=== PATIENT | female | born 1990 | race Caucasian/White ===

== ENCOUNTER → 2022-11-11 09:03 | Outpatient (CLI) | payer MEDICAID, SELFPAY ==
--- NOTE | 2022-11-11 09:03 | US_ITS ---
FINAL REPORT TECHNIQUE: Sonographic images of the pelvis were obtained transvaginally. CLINICAL HISTORY: left-sided pelvic pain COMPARISON: none FINDINGS: The uterus is retroverted and retroflexed. It measures 5.6 x 3.3 x 4.1 cm. The endometrial stripe measures 4 mm. The myometrium and cervix are unremarkable. An IUD is noted within the endometrial cavity. The right ovary measures 2.8 x 2.0 x 1.8cm. It is normal in appearance. The left ovary measures 3.1 x 2.5 x 2.4 cm. It is normal in appearance. Color imaging to the ovaries is within normal limits. There is no free fluid. IMPRESSION: IUD within the endometrial cavity. Normal sonographic appearance to the uterus and ovaries for age. Reviewed, Interpreted and Dictated by Marcela Swift MD Transcribed by Viviana Kaur Authenticated and . [facility]
== END ==
PROVIDERS: PCP Nurse Practitioner; Visit Provider Obstetrics & Gynecology
DX: R10.2 Pelvic and perineal pain (principal)
CPT/HCPCS: 76830

== ENCOUNTER → 2022-11-13 15:10 | Outpatient (CLI) | payer MEDICAID, SELFPAY ==
[2022-11-13 16:00] LABS: Basophils # 0.1 K/mm3 (0-0.2); Basophils % 1.7 % (0.1-2.0); Eosinophils # 0.4 K/mm3 (0.0-0.4); Eosinophils % 6.3 % (0.1-12.0); Hematocrit 44.4 % (37.0-47.0); Hemoglobin 14.7 g/dL (12.2-16.2); Lymphocytes # 2.1 K/mm3 (0.7-4.5); Lymphocytes % 31.1 % (10-50); Mean Corpuscular HGB Conc 33.1 g/dL (31.8-35.4); Mean Corpuscular Hemoglobin 31.1 pg (27.0-31.2); Mean Corpuscular Volume 94.2 fl (81-99); Monocytes # 0.3 K/mm3 (0.1-1.0); Monocytes % 4.7 % (1.7-9.3); Neutrophils # 3.8 K/mm3 (1.8-7.8); Neutrophils % 56.2 % (37.0-80.0); Platelet Count 284 K/mm3 (142-424); Red Blood Count 4.72 M/mm3 (4.20-5.40); Red Cell Distribution Width 12.2 % (11.5-17.5); White Blood Count 6.8 K/mm3 (4.8-10.8)
[2022-11-13 16:29] LABS: C-Reactive Protein 2.5 mg/L (0-4)
[2022-11-18 18:10] LABS: Aspergillus flavus Negative (Neg:<1:1); Aspergillus fumigatus Negative (Neg:<1:1); Aspergillus niger Negative (Neg:<1:1); Blastomyces Antibody Negative (Neg:<1:1)
[2022-11-20 07:44] LABS: D001-IgE D pteronyssinus 0.17 kU/L (Class 0/I); D002-IgE D farinae 0.12 kU/L (Class 0/I); E001-IgE Cat Dander >100 kU/L (Class VI); E072-IgE Mouse Urine 1.26 kU/L (Class II); G002-IgE Bermuda Grass 9.07 kU/L (Class IV); I006-IgE Cockroach, German 0.25 kU/L (Class 0/I); Immunoglobulin E, Total 402 IU/mL (6-495); M001-IgE Penicillium chrysogen <0.10 kU/L (Class 0); M002-IgE Cladosporium herbarum <0.10 kU/L (Class 0); M003-IgE Aspergillus fumigatus <0.10 kU/L (Class 0); M006-IgE Alternaria alternata <0.10 kU/L (Class 0); T001-IgE Maple/Box Elder 0.43 kU/L (Class I); T006-IgE Cedar, Mountain 0.38 kU/L (Class I); T007-IgE Oak, White 0.51 kU/L (Class I); T008-IgE Elm, American 0.54 kU/L (Class I); T010-IgE Walnut 0.58 kU/L (Class II); T011-IgE Maple Leaf Sycamore 0.55 kU/L (Class I); T014-IgE Cottonwood 0.49 kU/L (Class I); T015-IgE Ash, White 0.58 kU/L (Class II); T022-IgE Pecan, Hickory 0.44 kU/L (Class I); T070-IgE White Mulberry 0.37 kU/L (Class I); W001-IgE Ragweed, Short 0.58 kU/L (Class II); W011-IgE Thistle, Russian 0.62 kU/L (Class II); W014-IgE Pigweed, Common 0.46 kU/L (Class I); W018-IgE Sheep Sorrel 0.72 kU/L (Class II)
== END ==
PROVIDERS: PCP Nurse Practitioner; Visit Provider Internal Medicine Pulmonary Disease
DX: R06.09 Other forms of dyspnea (principal); J84.10 Pulmonary fibrosis, unspecified; J30.9 Allergic rhinitis, unspecified; J45.909 Unspecified asthma, uncomplicated
CPT/HCPCS: 36415; 82785; 85025; 86003; 86140; 86606; 86612

== ENCOUNTER → 2022-12-19 07:42 | Outpatient (CLI) | payer MEDICAID, SELFPAY ==
--- NOTE | 2022-12-19 09:08 | XR_ITS ---
FINAL REPORT TECHNIQUE: Chest PA & Lateral CLINICAL HISTORY: SOB FINDINGS: 2 views of the chest were performed. The heart size is normal. The mediastinum is within normal limits. There is no acute cardiopulmonary process. There are no pleural effusions. There is no pneumothorax. The bony thorax appears intact. IMPRESSION: No acute cardiopulmonary process. Reviewed, Interpreted and Dictated by Cristopher Brown MD Transcribed by Coni Guidry Authenticated and [facility]
== END ==
PROVIDERS: PCP Nurse Practitioner; Visit Provider Internal Medicine Pulmonary Disease
DX: R06.09 Other forms of dyspnea (principal); R06.02 Shortness of breath
CPT/HCPCS: 71046; 94060; 94618; 94726; 94729

== ENCOUNTER → 2023-01-07 14:05 | Outpatient (CLI) | payer MEDICAID, SELFPAY ==
[2023-01-07 14:41] LABS: Basophils # 0.1 K/mm3 (0-0.2); Basophils % 0.7 % (0.1-2.0); Eosinophils # 0.1 K/mm3 (0.0-0.4); Eosinophils % 1.5 % (0.1-12.0); Hematocrit 45.1 % (37.0-47.0); Hemoglobin 15.1 g/dL (12.2-16.2); Lymphocytes # 2.4 K/mm3 (0.7-4.5); Lymphocytes % 29.1 % (10-50); Mean Corpuscular HGB Conc 33.6 g/dL (31.8-35.4); Mean Corpuscular Hemoglobin 31.1 pg (27.0-31.2); Mean Corpuscular Volume 92.6 fl (81-99); Mean Platelet Volume 7.6 fl (7.4-10.4); Monocytes # 0.4 K/mm3 (0.1-1.0); Monocytes % 4.3 % (1.7-9.3); Neutrophils # 5.3 K/mm3 (1.8-7.8); Neutrophils % 64.3 % (37.0-80.0); Platelet Count 295 K/mm3 (142-424); Red Blood Count 4.87 M/mm3 (4.20-5.40); Red Cell Distribution Width 12.7 % (11.5-17.5); White Blood Count 8.3 K/mm3 (4.8-10.8)
[2023-01-07 16:02] LABS: Alanine Aminotransferase 26 U/L (12-78); Albumin Level 4.9 g/dl (3.5-5.0); Albumin/Globulin Ratio 1.9 (1.1-1.8); Alkaline Phosphatase 142 U/L (38-126); Anion Gap 13.8 mEq/L (5-15); Aspartate Amino Transferase 24 U/L (14-36); Bilirubin,Total 0.4 mg/dl (0.2-1.3); Blood Urea Nitrogen 5 mg/dl (7-17); Calcium 9.3 mg/dl (8.4-10.2); Carbon Dioxide 28 mmol/L (22.0-30.0); Chloride 104 mmol/L (98-107); Estimated Glomerular Filt Rate 144 ml/min (>60); GFR (African American) 174 ML/MIN (>60); Globulin 2.6 g/dL (1.3-3.2); Glucose 84 mg/dl (74-100); Potassium 3.8 mmoL/L (3.5-5.1); Sodium 142 mmol/L (136-145); Total Protein,Serum 7.5 g/dl (6.3-8.2)
[2023-01-07 16:18] LABS: HCG,Quantitative < 2 mIU/ml (0-5.42)
== END ==
PROVIDERS: PCP Nurse Practitioner; Visit Provider Obstetrics & Gynecology
DX: R10.2 Pelvic and perineal pain (principal)
CPT/HCPCS: 36415; 80053; 84702; 85025

== ENCOUNTER 2023-01-14 07:10 | Observation (INO) | payer MEDICAID, SELFPAY ==
[2023-01-13 10:42] VITALS: BMI 28.8
[2023-01-14] VITALS (22 sets, daily range): BP systolic 100–147; BP diastolic 54–83; PULSE 74–111; RESP 10–20; TEMP 36.1–43; O2SAT 93–100
[2023-01-14 06:37] LABS: Urine Pregnancy, HCG Qual. Negative (Negative)
--- NOTE | 2023-01-14 07:02 | P.PN_ITS ---
[facility] Disclaimer: The information contained in this section may have been updated after the patient was seen, as this information can be updated by other users. Medical History Abdominal pain Allergies Asthma Colon polyps Depression Dyspnea on exertion Endometriosis Family history of asthma Gestational diabetes History of 2019 novel coronavirus disease (COVID-19) History of anemia History of ovarian cyst Irritable bowel syndrome (IBS) Pelvic pain Primary stress urinary incontinence Surgical History History of endometrial ablation Hx of colonoscopy Hx of knee surgery Hx of laparoscopy [place] teeth removed Family History Other Cancer Diabetes Family history of asthma Family history of hypothyroidism Hypertension Mental health disorder Social History Smoking Status: Current every day smoker tobacco type: cigarettes packs per day: 1 years smoked: 14 alcohol intake: current substance use type: denies use current occupational status: unemployed Travel in the last 8 weeks: None caffeine: Yes [facility] Anesthesia Checklist Patient Identification Patient Identification: Arm Band and Verbal (Name & ) Structural Data Admitted From: Home Planned Operative Procedure/s: [facility] Consent for Planned Operative Procedure(s) Verified: Yes NPO Status Verified Time NPO: 00:00 Chart Verification Results Verified: HCG Airway Assessment C-Spine Mobility Assessed: Yes TMJ Mobility Assessed: Yes Dentition: Good Dentition Neurological Assessment Level of Consciousness: Awake Hx Seizures: No Numbness or tingling in extremities: No Anesthesia Plan Anesthesia Risk discussed: Yes Anesthesia Plan: Verified ASA Class: II Anesthesia Type: General
[2023-01-14 07:08] LABS: Coronavirus 19, PCR Not Detected (NotDetected); Influenza A, PCR Not Detected (NotDetected); Influenza B, PCR Not Detected (NotDetected)
--- NOTE | 2023-01-14 07:10 | SUR.PREOP ---
Confirmed preop medications as order by Dr Mortensen with Kenneth Medellin CRNA. Medications ok'd to be given PO prior to procedure per anesthesia provider. Medications given PO with a minimal but sufficient amount of water.
--- NOTE | 2023-01-14 07:12 | EXP.HP ---
History of Present Illness *Admission Date: 01/14/23 *Reason for visit:: Scheduled procedure *History of present illness: Mrs Luna Pearl is a 32 yo P1011 who presents to [facility] for scheduled procedure. She complains of abdominal pain/pressure and left side/low back pain. She reports history of endometriosis with history of laparoscopy and laser of endometriosis. She admits she was on Depo Provera for years secondary to irregular periods and pain. However, Depo provera led to weight gain and she switched to Mirena IUD in 2019. She reports irregular spotting throughout the month but once a month she has increased abdominal, left pelvic pain and side/low back pain like she would be having her period. She also reports history of ovarian cysts. She states all the women her family have had hysterectomies prior to age 40 for endometriosis. History of x 1 in 2016. She states and labor and delivery was a horrible experience. She is complete with childbearing. She has been diagnosed with IBS. She admits to stress urinary incontinence since delivery of her son. She states she has always had some difficulty with urinary frequency, even before . Denies urinary incontinence. Pelvic ultrasound 11/11/22 was within normal limits. IUD in proper position. She requests definitive surgical intervention with hysterectomy, BSO. [facility] Disclaimer: The information contained in this section may have been updated after the patient was seen, as this information can be updated by other users. Medical History Abdominal pain Allergies Asthma Colon polyps Depression Dyspnea on exertion Endometriosis Family history of asthma Gestational diabetes History of 2019 novel coronavirus disease (COVID-19) History of anemia History of ovarian cyst Irritable bowel syndrome (IBS) Pelvic pain Primary stress urinary incontinence Surgical History History of endometrial ablation Hx of colonoscopy Hx of knee surgery Hx of laparoscopy [place] teeth removed Family History Other Cancer Diabetes Family history of asthma Family history of hypothyroidism Hypertension Mental health disorder Social History Smoking Status: Current every day smoker tobacco type: cigarettes packs per day: 1 years smoked: 14 alcohol intake: current substance use type: denies use current occupational status: unemployed Travel in the last 8 weeks: None caffeine: Yes Review of Systems Review of Systems Review of systems:: pertinent systems reviewed and negative unless documented below *Gastrointestinal Gastrointestinal: Reports abdominal pain *Genitourinary Genitourinary: Reports pelvic pain Meds Home Medications and Allergies Home Medications Medication Instructions Recorded Confirmed Type albuterol sulfate 90 mcg/actuation See Rx Instructions .Route 10/20/22 01/14/23 History aerosol inhaler (Ventolin HFA) .COMPLEX PRN Allergic Symptoms fluticasone propionate 50 See Rx Instructions .Route 10/20/22 01/14/23 History mcg/actuation nasal .COMPLEX Allergy symptoms spray,suspension levonorgestrel 21 mcg/24 hours (8 See Protocol intrauterine 10/20/22 01/14/23 History yrs) 52 mg intrauterine device DIRECTED control (Mirena) loratadine-pseudoephedrine ER 10 1 tab PO DAILY Allergy symptoms 10/20/22 01/14/23 History mg-240 mg tablet,extended [id number] (Loratadine-D) quetiapine 25 mg tablet (Seroquel) 25 mg PO DAILY Insomnia 11/13/22 01/14/23 History zkfomxl-tcclptzgbghfg-uenrxfen 250 2 tab PO Q4-6H PRN Migraine 01/07/23 01/14/23 History mg-250 mg-65 mg tablet (Excedrin Headache Migraine) cetirizine 10 mg tablet (Zyrtec) 10 mg PO DAILY Allergy symptoms 01/07/23 01/14/23 History fluoxetine 20 mg capsule 20 mg
--- NOTE | 2023-01-14 09:51 | EXP.ANES.I ---
[facility] Anesthesia Record Part I Anesthesia Record I Intake, IV Amount: 1,200 Estimated blood loss (mL): 30 Urine output (mL): 0 Blood Pressure: 113/73 SaO2: 93 Pulse Rate: 85 Respiratory Rate: 10 Temperature: 97 F Patient is:: Drowsy and Oral/Nasal airway Stable to PACU at:: 09:50
--- NOTE | 2023-01-14 10:36 | EXP.OP.NOTE ---
Date of procedure: 01/14/23 Pre-op Diagnosis:: 1. Abdominal pain 2. Pelvic pain 3. History of ovarian cysts 4. Endometriosis 5. Anxiety 6. Depression 7. Asthma Post-op Diagnosis:: 1. Abdominal pain 2. Pelvic pain 3. History of ovarian cysts 4. Endometriosis 5. Anxiety 6. Depression 7. Asthma Procedure performed:: Total Laparoscopic Hysterectomy, Bilateral salpingo oophorectomy Surgeon:: Joyce Mortensen DO Skills Instructor(s):: Ozzy Schumacher MD SW[employer] TEAM MEMBER:: Kwan Mendez Anesthesia: GETA Estimated blood loss (mL): 50 Clinical Note:: Mrs Luna Pearl is a 32 yo P1011 who presents to [facility] for scheduled procedure. She complains of abdominal pain/pressure and left side/low back pain. She reports history of endometriosis with history of laparoscopy and laser of endometriosis. She admits she was on Depo Provera for years secondary to irregular periods and pain. However, Depo provera led to weight gain and she switched to Mirena IUD in 2019. She reports irregular spotting throughout the month but once a month she has increased abdominal, left pelvic pain and side/low back pain like she would be having her period. She also reports history of ovarian cysts. She states all the women her family have had hysterectomies prior to age 40 for endometriosis. History of x 1 in 2016. She states and labor and delivery was a horrible experience. She is complete with childbearing. She has been diagnosed with IBS. She admits to stress urinary incontinence since delivery of her son. She states she has always had some difficulty with urinary frequency, even before . Denies urinary incontinence. Pelvic ultrasound 11/11/22 was within normal limits. IUD in proper position. She requests definitive surgical intervention with hysterectomy, BSO. Operative findings:: 1. On bimanual exam, uterus midposition, normal size and shape, slightly retroverted. No adnexal masses palpated 2. On laparoscopic exam, grossly normal appearing liver, omentum and bowel. Uterus, bilateral fallopian tubes and bilateral ovaries grossly normal. Powder burn endometriosis lesions noted along left ureter and in posterior cul-de-sac Operative note:: Discussed risks, benefits, alternatives, expectations and possible complications of surgery. All questions addressed and answered. Patient wished to proceed with surgery. Patient was wheeled back to the operating room and placed under general anesthesia without difficulty. She was placed in the dorsal lithotomy position. She was prepped and draped in normal sterile fashion. Beginning at the vagina, a michelle catheter was inserted into the bladder and draining clear urine prior to the start of the procedure. Weighted Auvuard was placed in the vaginal vault. Anterior lip of the cervix was grasped with single tooth tenaculum. Uterus sounded to 8. Jaycob dilators were used to dilate the cervix. Advincula uterine manipulator was inserted into the cervix with the colpotomy cup covering the cervix. Single tooth tenaculum was removed prior to complete placement of colpotomy cup over cervix. Uterine balloon was filled with 10cc of air. Vaginal balloon was filled with 60 cc of air. Weighted Auvard was removed. Attention was then turned to the abdomen. Skin just below the umbilicus was injected with 0.5% marcaine. A 2cm infraumbilical incision was made. Veress needle was tested and inserted intrabdominally. Opening pressure was 7 mm Hg. The peritoneal cavity was insulflated to 15 mm Hg. Laparoscope within 11 mm blunt trocar was inserted intrabdominally under direct visualization. Obturator and scope were removed. Laparoscope was inserted into the trocar sleeve. Abdomen and pelvis was viewed in its entirety. Examination of the peritoneal cavity revealed no signs of injury from entry and normal anatomic structures. See findings above. Pictures were taken. Bowel was swept cephalad with blunt probe. LLQ port site was transilluminated and injected with 0.5% marcaine. A 2 cm
--- NOTE | 2023-01-14 16:30 | PC.NURSE ---
REASSESSMENT DONE AT THIS TIME. LUNGS CTA AND BOWEL SOUNDS HYPOACTIVE. PATIENT HAS BEEN VOIDING WELL TODAY. AMBULATING WITHOUT ASSISTANCE. IV INFUSING. A/O X4. NO EDEMA. PULSES 2+. 3 LAP SITES WITH DERMABOND. BRUSING NOTED. SCANT VAGINAL BLEEDING NOTED/.
[2023-01-15 02:54] VITALS: RESP 17
[2023-01-15 04:00] VITALS: BP 109/54; PULSE 74; RESP 17; TEMP 37.1; O2SAT 96
[2023-01-15 04:29] VITALS: RESP 17
--- NOTE | 2023-01-15 04:52 | PC.NURSE ---
Nursing reassessment done at this time. Pt has slept well throughout the night and intermittently c/o pain and requests to have oxycodone. Pt reports that this helps her the most with her pain. Pt reports that the gas pain has gotten some better but c/o gas still in shoulder, pillow and abdominal binder provided for relief. Surgical site remains unchanged during this shift. All sites are cdi, with bruising noted to all incisions sites. Lungs clear throughout and pt educated this shift on Incentive.Bowel sounds normative in all quadrants and pts reports no bm but is passing gas. Iv saline locked at this time. Pt ambulatory to the bathroom independently throughout the night. VSS throughout shift. Cb remains in reach.
[2023-01-15 06:50] LABS: Chloride 99 mmol/L (98-107); Sodium 138 mmol/L (136-145)
[2023-01-15 06:51] LABS: Potassium 3.7 mmoL/L (3.5-5.1)
[2023-01-15 06:53] LABS: Anion Gap 14.7 mEq/L (5-15); Blood Urea Nitrogen 9 mg/dl (7-17); Carbon Dioxide 28 mmol/L (22.0-30.0); Creatinine Clearance Estimated 196 mL/min (50-200); Estimated Glomerular Filt Rate 144 ml/min (>60); GFR (African American) 174 ML/MIN (>60)
[2023-01-15 06:54] LABS: Calcium 8.5 mg/dl (8.4-10.2); Glucose 100 mg/dl (74-100)
[2023-01-15 07:02] LABS: Basophils % 0.4 % (0.1-2.0); Eosinophils # 0.2 K/mm3 (0.0-0.4); Eosinophils % 2.4 % (0.1-12.0); Hematocrit 32.8 % (37.0-47.0); Hemoglobin 10.7 g/dL (12.2-16.2); Lymphocytes # 2.5 K/mm3 (0.7-4.5); Lymphocytes % 30.5 % (10-50); Mean Corpuscular HGB Conc 32.6 g/dL (31.8-35.4); Mean Corpuscular Hemoglobin 30.4 pg (27.0-31.2); Mean Corpuscular Volume 93.3 fl (81-99); Monocytes # 0.5 K/mm3 (0.1-1.0); Monocytes % 5.7 % (1.7-9.3); Platelet Count 207 K/mm3 (142-424); Red Blood Count 3.52 M/mm3 (4.20-5.40); Red Cell Distribution Width 12.6 % (11.5-17.5); White Blood Count 8.2 K/mm3 (4.8-10.8)
[2023-01-15 07:30] VITALS: O2SAT 97
[2023-01-15 07:47] VITALS: BP 101/45; PULSE 74; RESP 18; TEMP 36.7; O2SAT 97
--- NOTE | 2023-01-15 07:48 | P.PNANES_ITS ---
[facility] Anesthesia Record Part II Anesthesia Record Part II Discharge Time: 10:20 Destination: Surgical Day Care (OP Surgery) PACU nurse assessment reviewed?: Yes Patient Condition:: Good Anesthesia Complications:: None Swallowing reflex intact?: Yes Cyanosis?: No Blood Pressure: 117/74 Pulse Rate: 76 Temperature: 98.2 F Mental Status: Alert & Oriented Pain level:: 0 Nausea and/or vomitting:: None Intake, IV Amount: 0
[2023-01-15 07:49] VITALS: BP 117/74; PULSE 76; TEMP 36.8
--- NOTE | 2023-01-15 09:49 | EXP.DC.SUM ---
General Admission date:: 01/14/23 Discharge date: 01/15/23 HPI HPI HPI: POD # 1 s/p TLH, BSO Resting comfortably in bed. Pain controlled with medication. Light spotting with wiping. Voiding without difficulty and passing flatus. Tolerating regular diet. No nausea or vomiting. Ambulating well ad juaquin. Denies fever/chills, chest pain and shortness of breath. No headaches, dizziness or lower extremity swelling. Hospital Course Hospital Course Hospital Course: Mrs Luna Pearl is a 32 yo P1011 who presents to [facility] for scheduled procedure. She complains of abdominal pain/pressure and left side/low back pain. She reports history of endometriosis with history of laparoscopy and laser of endometriosis. She admits she was on Depo Provera for years secondary to irregular periods and pain. However, Depo provera led to weight gain and she switched to Mirena IUD in 2019. She reports irregular spotting throughout the month but once a month she has increased abdominal, left pelvic pain and side/low back pain like she would be having her period. She also reports history of ovarian cysts. She states all the women her family have had hysterectomies prior to age 40 for endometriosis. History of x 1 in 2016. She states and labor and delivery was a horrible experience. She is complete with childbearing. She has been diagnosed with IBS. She admits to stress urinary incontinence since delivery of her son. She states she has always had some difficulty with urinary frequency, even before . Denies urinary incontinence. Pelvic ultrasound 11/11/22 was within normal limits. IUD in proper position. She requests definitive surgical intervention with hysterectomy, BSO. She underwent H BSO on 01/14/23. She received Delestrogen 30 mg IM. She did well postoperatively. Pain controlled with PO medication. She was voiding without difficulty and passing flatus. Tolerating regular diet and ambulating well ad juaquin. No fever/chills, chest pain or shortness of breath. Vital signs stable, afebrile. Heart regular rate and rhythm. Lungs clear to auscultation. Abdomen soft, nontender. + BS in all 4 quadrants. Incisions clean/dry/intact. Normal hospital course. She was discharged home on POD # 1. Exam Data for Last 24 hours Vital signs and Labs for Last 24 Hours: Temp Pulse Resp BP Pulse Ox 98.2 F 76 18 117/74 97 01/15/23 07:49 01/15/23 07:49 01/15/23 07:47 01/15/23 07:49 01/15/23 07:47 Laboratory Results - last 24 hr 01/15/23 06:34: WBC 8.2, RBC 3.52 L, Hgb 10.7 L, Hct 32.8 L, MCV 93.3, MCH 30.4, MCHC 32.6, RDW 12.6, Plt Count 207, MPV 7.0 L, Neut % (Auto) 61.0, Lymph % (Auto) 30.5, [place] % (Auto) 5.7, Eos % (Auto) 2.4, Baso % (Auto) 0.4, Neut # (Auto) 5.0, Lymph # (Auto) 2.5, [place] # (Auto) 0.5, Eos # (Auto) 0.2, Baso # (Auto) 0.0 01/15/23 06:34: Sodium 138, Potassium 3.7, Chloride 99, Carbon Dioxide 28, Anion Gap 14.7, BUN 9, Creatinine 0.50 L, Estimated Creat Clear 196, Estimated GFR 144, Est GFR ( Amer) 174, Glucose 100, Calcium 8.5 I & O for Last 24 hours: Intake & Output 01/12/23 01/13/23 01/14/23 01/15/23 23:59 23:59 23:59 23:59 Intake Total 1200 / 1200 0 / 0 Output Total 1150 / 1150 250 / 250 Balance 50 / 50 -250 / -250 Weight 168 lb Constitutional Constitutional: no acute distress and cooperative *Routine HEENT Exam Head: Present normocephalic and atraumatic Eye: Absent conjunctivae pink ENT: Present mucous membranes moist *Routine Neck Exam Neck: Present full ROM *Routine Respiratory Exam Respiratory: Present CTA bilaterally and normal respiratory effort *Routine Cardiovascular Exam Cardiovascular: Present RRR *Routine Abdominal Exam Abdominal: Present soft and normoactive bowel sounds; Absent tenderness or distended Comments: laparoscopic incisions clean/dry/intact *Routine Rectal Exam Patient deferred: visual exam *Routine Exam Patient deferred: external exam *Routine Extremities Exam Extrem
--- NOTE | 2023-01-15 11:46 | PC.NURSE ---
Patient is unable to walk from her bedroom to bathroom r/t distance, recent abdominal surgery, and urinary frequency. Therefore patient will need bedside commode to accommodate her during this recovery period.
== END 2023-01-15 13:05 | disposition home or self-care (01) ==
LOC: 2ND 07:11 → OB 09:13
PROVIDERS: Admitting Provider Obstetrics & Gynecology; PCP Nurse Practitioner; Visit Provider Obstetrics & Gynecology
PROC: (CPT 58150; principal; 2023-01-14 07:30)
DX: N80.9 Endometriosis, unspecified (principal); J45.909 Unspecified asthma, uncomplicated; N39.3 Stress incontinence (female) (male); F41.9 Anxiety disorder, unspecified; R10.2 Pelvic and perineal pain; R10.9 Unspecified abdominal pain
CPT/HCPCS: 58150; 36415; 80048; 81025; 85025; 88307; 96374; C9803; G0378; J2405; U0003; U0005

== ENCOUNTER 2023-12-27 13:24 | Emergency (ER) | payer SELFPAY ==
[2023-12-27 13:26] VITALS: BP 135/101; PULSE 95; RESP 18; TEMP 36.8; O2SAT 99; BMI 29.2
[2023-12-27 13:30] VITALS: BP 135/101; PULSE 95; O2SAT 99
--- NOTE | 2023-12-27 13:40 | CT_ITS ---
PROCEDURE INFORMATION: Exam: CT Head Without Contrast Exam date and time: 12/27/2023 2:34 PM Age: 33 years old Clinical indication: Pain; Headache; Additional info: MCCONNELL x 3 weeks TECHNIQUE: Imaging protocol: Computed tomography of the head without contrast. Radiation optimization: All CT scans at this facility use at least one of these dose optimization techniques: automated exposure control; mA and/or kV adjustment per patient size (includes targeted exams where dose is matched to clinical indication); or iterative reconstruction. COMPARISON: No relevant prior studies available. FINDINGS: Brain: Normal. No hemorrhage. Unremarkable white matter. No mass effect. Cerebral ventricles: No ventriculomegaly. Paranasal sinuses: There is a 2.3 cm right maxillary sinus mucous retention cyst. Mild mucosal thickening of the left maxillary sinus. The remainder of the paranasal sinuses are clear. No fluid levels. Mastoid air cells: Visualized mastoid air cells are well aerated. Bones/joints: Unremarkable. No acute fracture. Soft tissues: Unremarkable. IMPRESSION: No acute intracranial abnormality. There is a 2.3 cm right maxillary sinus mucous retention cyst. Mild mucosal thickening of the left maxillary sinus. The remainder of the paranasal sinuses are clear
--- NOTE | 2023-12-27 13:43 | ED_ITS ---
Discharge Plan Disposition Patient Disposition: Home, Self-Care Prescriptions Prescriptions: No Action quetiapine [Seroquel] 25 mg tablet 25 mg PO HS prazosin 1 mg capsule 1 mg PO HS fluoxetine 20 mg capsule 20 mg PO DAILY Patient Comments: TAKE 1 CAPSULE 1 TIME EACH DAY hydroxyzine pamoate 25 mg capsule 25 mg PO TID PRN (Reason: Anxiety) Excedrin Migraine 250-250-65 mg tablet 2 tab PO Q4-6H PRN (Reason: Migraine Headache) fluticasone propionate 50 mcg/actuation spray,suspension 1 spray intranasal DAILY Patient Comments: SPRAY 1 TIME IN EACH NOSTRIL 1 TIME EACH DAY albuterol sulfate [Ventolin HFA] 90 mcg/actuation HFA aerosol inhaler 2 puff inhalation Q4HP PRN (Reason: Shortness Of Breath) Patient Comments: INHALE 2 PUFFS EVERY 4 HOURS NEEDED montelukast [Singulair] 10 mg tablet 10 mg PO HS levocetirizine [Xyzal] 5 mg tablet 5 mg PO DAILY estradiol valerate 20 mg/mL oil 20 mg IM Q4W Qty: 5 3RF Rx Instructions: Patient needs an appt. by February for yearly check up budesonide-formoterol [Symbicort] 160-4.5 mcg/actuation HFA aerosol inhaler 2 puff inhalation BID lamotrigine 25 mg tablet 50 mg PO DAILY Patient Comments: TAKE 1 TABLET 1 TIME EACH DAY FOR 14 DAYS. THEN, TAKE 2 TABLETS 1 TIME EACH DAY. Rx Instructions: WILL SWITCH TO 100 MG DOSE ON OR ABOUT 01/19/23. Referrals Follow up/Referrals: Karina Soto APRN [Primary Care Provider] - See instructions Activity Restrictions/Add. Instructions Additional Instructions/Restrictions: At this time it was felt you are safe to be discharged home. If new or worsening symptoms please do not hesitate to return the emergency department. If symptoms persist please follow-up with your family doctor as you are able. Clinical Impressions Clinical Impression: Headache Discharge ED Provider: Minerva Espana General Adult HPI <Minerva Espana MD - Last Filed: 12/27/23 14:55> General Chief complaint: Headache Stated complaint: headache, shoulder neck pain and dizzy Time Seen by Provider: 12/27/23 13:34 History of Present Illness HPI narrative: Patient is a 33-year-old female presenting today with a headache. This has been ongoing and slightly worsening over the last several weeks. She has been undergoing a significant amount of stress and anxiety as her mother is moving up from [place] to [place] and is caught significant family issues and arguments. She does have a history of headaches and states that she had many headaches in the past but has never had to come to the emergency department for them as she is usually been able to get on top of them at home. She also has a family member who recently from a brain cancer and specifically she is worried about being next. She has no neurologic complaints but states when she changes movement or position quickly that her vision is blurred but is essentially at baseline of that. Denies any numbness tingling weakness in her arms or legs etc. No changes in coordination. Related Data Home Medications Medication Instructions Recorded Confirmed albuterol sulfate 90 mcg/actuation 2 puff inhalation Q4HP PRN 10/20/22 04/09/23 aerosol inhaler (Ventolin HFA) Shortness Of Breath fluticasone propionate 50 1 spray intranasal DAILY Allergy 10/20/22 04/09/23 mcg/actuation nasal symptoms spray,suspension quetiapine 25 mg tablet (Seroquel) 25 mg PO HS Insomnia 11/13/22 04/09/23 crkqccm-ugljjzitywenp-xmwdkksf 250 2 tab PO Q4-6H PRN Migraine 01/07/23 04/09/23 mg-250 mg-65 mg tablet (Excedrin Headache Migraine) fluoxetine 20 mg capsule 20 mg PO DAILY Anxiety 01/07/23 04/09/23 hydroxyzine pamoate 25 mg capsule 25 mg PO TID PRN Anxiety 01/07/23 04/09/23 prazosin 1 mg capsule 1 mg PO HS PTSD 01/07/23 04/09/23 budesonide-formoterol HFA 160 2 puff inhalation BID Allergy 01/13/23 04/09/23 mcg-4.5 mcg/actuation aerosol symptoms inhaler (Symbicort) lamotrigine 25 mg tablet 50 mg PO DAILY PTSD 01/14/23 04/09/23 levocetirizine 5 mg tablet (Xyzal) 5 mg PO DAILY 03/12/23 04/09/23 montelukast 10 mg tablet 10 mg PO HS 03/12/23 04/09/23 (Singulair) Previous Rx's Medication Instructions Recorded estradiol valerate 20 mg/mL 20 mg IM Q4W #5 mL 11/04/23 intramuscular oil Allergies Allergy/AdvReac Type Severity Reaction Status Date / Time No Known Allergies Allergy Verified 04/09/23 10:05 [facility] <Minerva Espana MD - Last Filed: 12/27/23 14:55> [facility] Disclaimer: The information contained in this section may have been updated after the patient was seen, as this information can be updated by other users. Medical History Abdominal pain Allergies Asthma Colon polyps Depression Dyspnea on exertion Endometriosis Endometriosis Family history of asthma Gestational diabetes History of 2019 novel coronavirus disease (COVID-19) History of anemia History of ovarian cyst Irritable bowel syndrome (IBS) Pelvic pain Primary stress urinary incontinence Urinary frequency Surgical History H/O total hysterectomy Laparoscopic History of endometrial ablation Hx of colonoscopy Hx of knee surgery Hx of laparoscopy S/P laparoscopic hysterectomy bilateral salpingo oophorectomy [place] teeth removed Family History Other Cancer Diabetes Family history of asthma Family history of hypothyroidism Hypertension Mental health disorder Social History Smoking Status: Never smoker years smoked: 14 alcohol intake: current substance use type: denies use current occupational status: unemployed Travel in the last 8 weeks: None caffeine: Yes <Minerva Espana MD - Last Filed: 12/27/23 14:55> ROS Obtained: Yes All systems reviewed & no additional complaints except as documented Physical Exam <Minerva Espana MD - Last Filed: 12/27/23 14:55> General General appearance: alert and in no apparent distress Respiratory Respiratory exam: Present normal lung sounds bilaterally; Absent respiratory distress Cardiovascular Cardiovascular exam: Present regular rate and normal rhythm Abdominal Exam Abdominal exam: Present soft; Absent distention or tenderness Neurological Exam Neurological exam: Present alert, oriented X3, CN II-XII intact and normal gait; Absent motor sensory deficit Medical Decision Making <Minerva Espana MD - Last Filed: 12/27/23 14:55> Luis Inquiry Pt receiving controlled substance: No Vital Signs: 12/27/23 13:26 12/27/23 13:30 12/27/23 14:06 Temperature 98.3 F Temperature Source Oral Pulse Rate 95 H 67 Pulse Rate [Right] 95 H Respiratory Rate 18 Blood Pressure 135/101 H 119/78 Blood Pressure [Right Arm] 135/101 H Blood Pressure Mean [Right Arm] 112 02 Sat by Pulse Oximetry 99 99 97 Oxygen Delivery Method Room Air Room Air Room Air 12/27/23 14:41 Temperature Temperature Source Pulse Rate 58 L Pulse Rate [Right] Respiratory Rate Blood Pressure 127/65 Blood Pressure [Right Arm] Blood Pressure Mean [Right Arm] 02 Sat by Pulse Oximetry 94 L Oxygen Delivery Method Room Air Orders (Tests/Meds): ED MEDICATIONS Discontinued Medications Generic Name Dose Route Start Last Admin Trade Name Freq PRN Reason Stop Dose Admin Dexamethasone Sodium Phosphate 10 mg 12/27/23 13:40 12/27/23 13:56 Dexamethasone 4mg/Ml 1ml Vial IV 12/27/23 13:41 10 mg ONCE ONE Administration Diphenhydramine HCl 25 mg 12/27/23 13:40 12/27/23 13:56 Diphenhydramine 50mg/Ml Vial IV 12/27/23 13:41 25 mg ONCE ONE Administration Lactated Ringer's 1,000 mls @ 999 mls/hr 12/27/23 13:45 12/27/23 13:57 Lactated Ringer's 1000 Ml Bag IV 12/27/23 14:45 999 mls/hr .Q1H1M MESHA Administration Ketorolac Tromethamine 15 mg 12/27/23 13:40 12/27/23 13:56 Ketorolac 30mg/Ml Vial IV 12/27/23 13:41 15 mg ONCE ONE Administration Prochlorperazine Edisylate 10 mg 12/27/23 13:40 12/27/23 13:57 Prochlorperazine 10mg/2ml Vial IV 12/27/23 13:41 10 mg ONCE ONE Administration ORDERS Category Date Time Status CT head/brain wo con Stat Cat Scan 12/27/23 13:40 Completed Medical Decision Narrative: Well-appearing nontoxic 33-year-old female presenting today with a subacute headache over the last several weeks. She has a normal neurologic exam no meningismus I am not concerned about a ruptured subarachnoid hemorrhage meningitis etc. It is remotely possible that she has a space-occupying lesion given the duration of this we will get a CT scan of her head also she is very concerned given the recent family diagnosis of a brain tumor that took someone's life in her own home. I believe that is very unlikely. Most likely this is a migraine superimposed on excessive stress that she has been undergoing recently. IV fluids Toradol Compazine Benadryl and dexamethasone have been administered will reassess after these medications. CT scan performed which I personally interpreted which shows no large space- occupying lesion at 3:00 patient is significantly improved but care was transitioned to Dr. Han Doll for final evaluation after CT read is performed. <Edilberto Doll MD - Last Filed: 12/27/23 15:39> Vital Signs: 12/27/23 13:26 12/27/23 13:30 12/27/23 14:06 Temperature 98.3 F Temperature Source Oral Pulse Rate 95 H 67 Pulse Rate [Right] 95 H Respiratory Rate 18 Blood Pressure 135/101 H 119/78 Blood Pressure [Right Arm] 135/101 H Blood Pressure Mean [Right Arm] 112 02 Sat by Pulse Oximetry 99 99 97 Oxygen Delivery Method Room Air Room Air Room Air 12/27/23 14:41 Temperature Temperature Source Pulse Rate 58 L Pulse Rate [Right] Respiratory Rate Blood Pressure 127/65 Blood Pressure [Right Arm] Blood Pressure Mean [Right Arm] 02 Sat by Pulse Oximetry 94 L Oxygen Delivery Method Room Air Orders (Tests/Meds): ED MEDICATIONS Discontinued Medications Generic Name Dose Route Start Last Admin Trade Name Freq PRN Reason Stop Dose Admin Dexamethasone Sodium Phosphate 10 mg 12/27/23 13:40 12/27/23 13:56 Dexamethasone 4mg/Ml 1ml Vial IV 12/27/23 13:41 10 mg ONCE ONE Administration Diphenhydramine HCl 25 mg 12/27/23 13:40 12/27/23 13:56 Diphenhydramine 50mg/Ml Vial IV 12/27/23 13:41 25 mg ONCE ONE Administration Lactated Ringer's 1,000 mls @ 999 mls/hr 12/27/23 13:45 12/27/23 13:57 Lactated Ringer's 1000 Ml Bag IV 12/27/23 14:45 999 mls/hr .Q1H1M MESHA Administration Ketorolac Tromethamine 15 mg 12/27/23 13:40 12/27/23 13:56 Ketorolac 30mg/Ml Vial IV 12/27/23 13:41 15 mg ONCE ONE Administration Prochlorperazine Edisylate 10 mg 12/27/23 13:40 12/27/23 13:57 Prochlorperazine 10mg/2ml Vial IV 12/27/23 13:41 10 mg ONCE ONE Administration ORDERS Category Date Time Status CT head/brain wo con Stat Cat Scan 12/27/23 13:40 Completed Medical Decision Narrative: Well-appearing nontoxic 33-year-old female presenting today with a subacute headache over the last several weeks. She has a normal neurologic exam no meningismus I am not concerned about a ruptured subarachnoid hemorrhage meningi tis etc. It is remotely possible that she has a space-occupying lesion given the duration of this we will get a CT scan of her head also she is very concerned given the recent family diagnosis of a brain tumor that took someone's life in her own home. I believe that is very unlikely. Most likely this is a migraine superimposed on excessive stress that she has been undergoing recently. IV fluids Toradol Compazine Benadryl and dexamethasone have been administered will reassess after these medications. CT scan performed which I personally interpreted which shows no large space- occupying lesion at 3:00 patient is significantly improved but care was transitioned to Dr. Han Doll for final evaluation after CT read is performed. Edilberto Doll: Upon assumption of care patient was hemodynamically stable, CT head shows no acute intracranial abnormality, there is a 2.3 cm right maxillary sinus mucosal retention cyst, no acute intracranial abnormality. Upon repeat evaluation patient had some resolution of headache and is appropriate for outpatient management at this time. Critical Care <Minerva Espana MD - Last Filed: 12/27/23 14:55> Critical Care Time Critical Care Time: No
[2023-12-27] MEDS: diphenhydrAMINE 50MG/ML VIAL 25 MG IV (13:56)
[2023-12-27] MEDS: KETOROLAC 30MG/ML VIAL 15 MG IV (13:56)
[2023-12-27] MEDS: DEXAMETHASONE 4MG/ML 1ML VIAL 10 MG IV (13:56)
[2023-12-27] MEDS: PROCHLORPERAZINE 10MG/2ML VIAL 10 MG IV (13:57)
[2023-12-27] MEDS: LACTATED RINGERS 1000ML 1,000 ML 999 ML IV (13:57)
[2023-12-27 14:06] VITALS: BP 119/78; PULSE 67; O2SAT 97
[2023-12-27 14:41] VITALS: BP 127/65; PULSE 58; O2SAT 94
[2023-12-27 15:54] VITALS: BP 129/70; PULSE 68; RESP 16; TEMP 36.7; O2SAT 96
== END 2023-12-27 15:56 | disposition home or self-care (01) ==
PROVIDERS: Emergency Provider Student in an Organized Health Care Education/Training Program; PCP Nurse Practitioner
DX: G44.89 Other headache syndrome (principal); M54.2 Cervicalgia; R42 Dizziness and giddiness; J34.1 Cyst and mucocele of nose and nasal sinus
CPT/HCPCS: 70450; 96361; 96374; 96375; 99284

== ENCOUNTER 2024-01-26 13:36 | Emergency (ER) | payer SELFPAY ==
[2024-01-26 13:37] VITALS: BP 105/77; PULSE 101; RESP 20; TEMP 36.7; O2SAT 98; BMI 30.9
--- NOTE | 2024-01-26 13:51 | CT_ITS ---
PROCEDURE INFORMATION: Exam: CTA Head With Contrast, Venography Exam date and time: 01/26/2024 2:48 PM Age: 33 years old Clinical indication: Pain; Headache; Additional info: Headache, L sided, L visual disturbance TECHNIQUE: Imaging protocol: Computed tomography angiography of the head with contrast. Exam focused on the veins. 3D rendering (Not supervised by radiologist): MIP and/or 3D reconstructed images were created by the technologist. Radiation optimization: All CT scans at this facility use at least one of these dose optimization techniques: automated exposure control; mA and/or kV adjustment per patient size (includes targeted exams where dose is matched to clinical indication); or iterative reconstruction. Contrast material: ISOVUE 370; Contrast volume: 100 ml; Contrast route: INTRAVENOUS (IV); COMPARISON: CT HEAD/BRAIN WO CON 01/26/2024 2:45 PM FINDINGS: Superior sagittal sinus: Patent. Straight sinus: Patent. Transverse sinuses: Patent. Sigmoid sinuses: Patent. Internal jugular veins: Limited visualized internal jugular veins are patent. Brain: No definite mass, mass effect, or midline shift. Cerebral ventricles: No ventriculomegaly. Soft tissues: Unremarkable. IMPRESSION: No venous thrombosis.
--- NOTE | 2024-01-26 13:51 | CT_ITS ---
FINAL REPORT CLINICAL HISTORY: headache, L sided, L visual disturbance COMPARISON: 12/27/2023 FINDINGS: Axial images of the head were obtained without contrast. Coronal reformatted images were also obtained.This study was performed with techniques to keep radiation doses as low as reasonably achievable (ALARA). Individualized dose reduction techniques using automated exposure control or adjustment of mA and/or kV according to the patient's size were employed. Motion artifact is identified on some of the images. There is no evidence of intracranial hemorrhage or mass. The ventricular size is within normal limits. There is no evidence of shift of the midline structures. No abnormal extra axial fluid collection is identified. No skull abnormality is seen on the bone window images. There is a retention cyst or polyp in the right maxillary sinus. There is mucosal thickening of multiple sinuses. IMPRESSION: No acute intracranial abnormality. Mucosal thickening of multiple sinuses. Reviewed, Interpreted and Dictated by Ochoa Torres III, MD Transcribed by Natalie Hale Authenticated and [facility]
[2024-01-26] MEDS: KETOROLAC 30MG/ML VIAL 15 MG IV (14:10)
[2024-01-26] MEDS: diphenhydrAMINE 50MG/ML VIAL 25 MG IV (14:10)
[2024-01-26] MEDS: ACETAMINOPHEN 1,000MG/100ML VIAL 1000 MG IV (14:11)
[2024-01-26] MEDS: MAGNESIUM SULFATE IN WATER 2 GM/50 ML PIGGYBACK IV (14:11)
[2024-01-26] MEDS: LACTATED RINGERS 1000ML 1,000 ML 999 ML IV (14:11)
[2024-01-26] MEDS: PROCHLORPERAZINE 10MG/2ML VIAL 5 MG IV (14:11)
--- NOTE | 2024-01-26 14:15 | HMH.EDGENADL ---
Discharge Plan Disposition Patient Disposition: Home, Self-Care Condition: Good Prescriptions Prescriptions: No Action quetiapine [Seroquel] 25 mg tablet 25 mg PO HS prazosin 1 mg capsule 1 mg PO HS fluoxetine 20 mg capsule 20 mg PO DAILY Patient Comments: TAKE 1 CAPSULE 1 TIME EACH DAY hydroxyzine pamoate 25 mg capsule 25 mg PO TID PRN (Reason: Anxiety) Excedrin Migraine 250-250-65 mg tablet 2 tab PO Q4-6H PRN (Reason: Migraine Headache) fluticasone propionate 50 mcg/actuation spray,suspension 1 spray intranasal DAILY Patient Comments: SPRAY 1 TIME IN EACH NOSTRIL 1 TIME EACH DAY albuterol sulfate [Ventolin HFA] 90 mcg/actuation HFA aerosol inhaler 2 puff inhalation Q4HP PRN (Reason: Shortness Of Breath) Patient Comments: INHALE 2 PUFFS EVERY 4 HOURS NEEDED montelukast [Singulair] 10 mg tablet 10 mg PO HS levocetirizine [Xyzal] 5 mg tablet 5 mg PO DAILY estradiol valerate 20 mg/mL oil 20 mg IM Q4W Qty: 5 3RF Rx Instructions: Patient needs an appt. by February for yearly check up budesonide-formoterol [Symbicort] 160-4.5 mcg/actuation HFA aerosol inhaler 2 puff inhalation BID lamotrigine 25 mg tablet 50 mg PO DAILY Patient Comments: TAKE 1 TABLET 1 TIME EACH DAY FOR 14 DAYS. THEN, TAKE 2 TABLETS 1 TIME EACH DAY. Rx Instructions: WILL SWITCH TO 100 MG DOSE ON OR ABOUT 01/19/23. Referrals Follow up/Referrals: Karina Soto APRN [Primary Care Provider] - See instructions Activity Restrictions/Add. Instructions Additional Instructions/Restrictions: You were evaluated in the emergency department today. We had a discussion with Dr. Jeter in ophthalmology at [facility] who advised that they would like to see you outpatient. They are supposed to call you over the next few days to set up an appointment. I also recommend seeing if your primary care provider can set up close follow-up with neurology. Clinical Impressions Clinical Impression: Chronic intractable headache, Left eye pain Stand Alone Forms Stand Alone Forms: Work/School Release Discharge ED Provider: Maricarmen Potter General Adult HPI <Maricarmen Potter DO - Last Filed: 05/14/24 16:21> General Chief complaint: Headache Stated complaint: pain in left shoulder, neck and head Time Seen by Provider: 01/26/24 13:45 Mode of Arrival: Ambulatory Source of Information: Patient Limitations: No Limitations Description of Symptoms (Recalled from ER Triage Doc. by RN): pt states she was here on 12/27/23 with same s/s and was told she has a nasal cyst or something per the scan. pt mainly complains of migraine s/s such as vision and hearing changes with headache History of Present Illness HPI narrative: This patient is a 33-year-old female with a history of migraines, anxiety, depression, asthma, and ADHD presenting to the emergency department for evaluation with concern for headache. Patient reports that she was evaluated here 12/27/2023 for headache and was found to have a sinus cyst, but she was discharged home after reassuring CT scan. She states that since then, she is continue to have pain on the left side of her head and scalp. She states that when water hits the left side of her head in the shower, it is painful. The pain is a burning pain that goes all the way from her scalp into her neck and down her left arm. She also gets occasional numbness and tingling in her fingertips. She states that she also feels that she is having trouble opening her left eye all the way and feels like her lid is lagging. She feels a lot of pressure behind her left eye as well and she states that she is having subjective visual disturbance that she cannot describe it. No fevers, chills, nuchal rigidity, gait disturbance, motor weakness, or other concerns. No known history of issues like this in the past. Related Data Home Medications Medication Instructions Recorded Confirmed albuterol sulfate 90 mcg/actuation 2 puff inhalation Q4HP PRN 10/20/22 04/09/23 aerosol inhaler (Ventolin HFA) Shortness Of Breath fluticasone propionate 50 1 spray intranasal DAILY Allergy 10/20/22 04/09/23 mcg/actuation nasal symptoms spray,suspension quetiapine 25 mg tablet (Seroquel) 25 mg PO HS Insomnia 11/13/22 04/09/23 eokpcrz-zlqsjosgsyzvl-tbcaefhu 250 2 tab PO Q4-6H PRN Migraine 01/07/23 04/09/23 mg-250 mg-65 mg tablet (Excedrin Headache Migraine) fluoxetine 20 mg capsule 20 mg PO DAILY Anxiety 01/07/23 04/09/23 hydroxyzine pamoate 25 mg capsule 25 mg PO TID PRN Anxiety 01/07/23 04/09/23 prazosin 1 mg capsule 1 mg PO HS PTSD 01/07/23 04/09/23 budesonide-formoterol HFA 160 2 puff inhalation BID Allergy 01/13/23 04/09/23 mcg-4.5 mcg/actuation aerosol symptoms inhaler (Symbicort) lamotrigine 25 mg tablet 50 mg PO DAILY PTSD 01/14/23 04/09/23 levocetirizine 5 mg tablet (Xyzal) 5 mg PO DAILY 03/12/23 04/09/23 montelukast 10 mg tablet 10 mg PO HS 03/12/23 04/09/23 (Singulair) Previous Rx's Medication Instructions Recorded estradiol valerate 20 mg/mL 20 mg IM Q4W #5 mL 11/04/23 intramuscular oil Allergies Allergy/AdvReac Type Severity Reaction Status Date / Time No Known Allergies Allergy Verified 04/09/23 10:05 [facility] <Maricarmen Potter DO - Last Filed: 01/26/24 16:21> [facility] Disclaimer: The information contained in this section may have been updated after the patient was seen, as this information can be updated by other users. Medical History Urinary frequency Depression Endometriosis Irritable bowel syndrome (IBS) Gestational diabetes History of anemia Family history of asthma Allergies Asthma History of 2019 novel coronavirus disease (COVID-19) Dyspnea on exertion History of ovarian cyst Primary stress urinary incontinence Pelvic pain Abdominal pain Endometriosis Colon polyps Surgical History H/O total hysterectomy S/P laparoscopic hysterectomy [place] teeth removed History of endometrial ablation Hx of colonoscopy Hx of knee surgery Hx of laparoscopy Family History Other Cancer Diabetes Family history of asthma Family history of hypothyroidism Hypertension Mental health disorder Social History Smoking Status: Current every day smoker tobacco type: cigarettes packs per day: 1 years smoked: 14 alcohol intake: current alcohol intake frequency: holidays/special occasions only substance use type: denies use current occupational status: unemployed Travel in the last 8 weeks: None caffeine: Yes <Maricarmen Potter DO - Last Filed: 01/26/24 16:21> ROS Obtained: Yes All systems reviewed & no additional complaints except as documented Physical Exam <Maricarmen Potter DO - Last Filed: 01/26/24 16:21> General General appearance: alert and in no apparent distress Head Head exam: atraumatic and normocephalic Eye Eye exam: Present EOMI (EOMI, but pain with) and other (mild ptosis of L eye); Absent PERRL (anisicoria with R pupil 3mm and L pupil 2mm.) ENT ENT exam: Present normal exam, normal oropharynx, mucous membranes moist and normal external ear exam Neck Neck exam: Present normal inspection, full ROM and trachea midline; Absent tenderness Chest Chest inspection: Present normal inspection and symmetric chest wall rise; Absent tenderness Respiratory Respiratory exam: Present normal lung sounds bilaterally; Absent respiratory distress, wheezes, stridor or accessory muscle use Cardiovascular Cardiovascular exam: Present regular rate and normal rhythm Abdominal Exam Abdominal exam: Present soft; Absent distention, tenderness or guarding Extremities Exam Extremities exam: Present normal inspection, full ROM and normal capillary refill; Absent tenderness or edema Back Exam Back exam: Present normal inspection and full ROM; Absent tenderness Neurological Exam Neurological exam: Present alert, oriented X3, normal gait and other (anisicoria (R>L) as well as mild L ptosis that can be overcome); Absent motor sensory deficit Expanded Neurological Exam Cranial nerves: Normal: EOM function (II, III, IV, ), facial sensation (V) and tongue deviation (XII) Coma scale eye opening: Spontaneous Coma scale motor response: Obeys commands Coma scale verbal response: Oriented Coma scale total: 15 Psychiatric Psychiatric exam: Present normal affect and normal mood Skin Skin exam: Present warm and dry <YISEL Denton - Last Filed: 01/26/24 17:37> Expanded Neurological Exam Coma scale total: 15 <Pradeep Tovar MD - Last Filed: 01/26/24 17:52> Expanded Neurological Exam Coma scale total: 15 Medical Decision Making <Maricarmen Potter DO - Last Filed: 01/26/24 16:21> Medical Records Medical records reviewed: Yes I reviewed the patient's medical records. Luis Inquiry Pt receiving controlled substance: No Vital Signs: 01/26/24 13:37 01/26/24 14:30 01/26/24 15:32 Temperature 98.0 F Temperature Source Oral Pulse Rate 70 73 Pulse Rate [Right Radial] 101 H Respiratory Rate 20 Blood Pressure 100/62 L 110/57 L Blood Pressure [Right Arm] 105/77 L Blood Pressure Mean [Right Arm] 86 02 Sat by Pulse Oximetry 98 97 100 Oxygen Delivery Method Room Air Room Air Lab Data Lab results reviewed: Yes I reviewed the patient's lab results. Lab Results 01/26/24 14:50: WBC 7.8, RBC 4.24, Hgb 13.4, Hct 40.8, MCV 96.2, MCH 31.6 H, MCHC 32.9, RDW 12.9, Plt Count 240, MPV 8.5, Neut % (Auto) 76.7, Lymph % (Auto) 12.9, [place] % (Auto) 4.3, Eos % (Auto) 5.4, Baso % (Auto) 0.7, Neut # (Auto) 6.0, Lymph # (Auto) 1.0, [place] # (Auto) 0.3, Eos # (Auto) 0.4, Baso # (Auto) 0.1, ESR 23 H, Sodium 133 L, Potassium 3.9, Chloride 101, Carbon Dioxide 28, Anion Gap 7.9, BUN 5 L, Creatinine 0.70, Estimated Creat Clear 149, Estimated GFR 97, Est GFR ( Amer) 117, Glucose 100, Calcium 8.9, Total Bilirubin 0.6, AST 32, ALT 26, Alkaline Phosphatase 150 H, Total Protein 6.7, Albumin 4.0, Globulin 2.7, Albumin/Globulin Ratio 1.5 01/26/24 14:50 01/26/24 14:50 Orders (Tests/Meds): ED MEDICATIONS Discontinued Medications Generic Name Dose Route Start Last Admin Trade Name Freq PRN Reason Stop Dose Admin Acetaminophen 1,000 mg 01/26/24 13:51 01/26/24 14:11 Acetaminophen 1,000mg/100ml Vial IV 01/26/24 13:52 1,000 mg ONCE ONE Administration Dexamethasone Sodium Phosphate 10 mg 01/26/24 15:35 01/26/24 15:42 Dexamethasone 4mg/Ml 1ml Vial IV 01/26/24 15:36 10 mg ONCE ONE Administration Diphenhydramine HCl 25 mg 01/26/24 13:51 01/26/24 14:10 Diphenhydramine 50mg/Ml Vial IV 01/26/24 13:52 25 mg ONCE ONE Administration Lactated Ringer's 1,000 mls @ 999 mls/hr 01/26/24 13:51 01/26/24 14:11 Lactated Ringer's 1000 Ml Bag IV 01/26/24 14:51 999 mls/hr .Q1H1M ONE Administration Magnesium Sulfate 2 gm in 50 mls @ 50 mls/hr 01/26/24 13:51 01/26/24 14:11 Magnesium Sulfate 2gm/50ml Premix IV 01/26/24 14:50 50 mls/hr ONCE ONE Administration Iopamidol 100 ml 01/26/24 14:49 01/26/24 14:50 Iopamidol-370 (76%);100ml Bottle IV 01/26/24 14:50 100 ml ONCE ONE Administration Ketorolac Tromethamine 15 mg 01/26/24 13:51 01/26/24 14:10 Ketorolac 30mg/Ml Vial IV 01/26/24 13:52 15 mg ONCE ONE Administration Prochlorperazine Edisylate 5 mg 01/26/24 13:51 01/26/24 14:11 Prochlorperazine 10mg/2ml Vial IV 01/26/24 13:52 5 mg ONCE ONE Administration Sodium Chloride 10 ml 01/26/24 14:49 01/26/24 14:50 Sodium Chloride 0.9% 10ml Syr (Rad Only) IV 01/26/24 14:50 10 ml ONCE ONE Administration Sodium Chloride 50 ml 01/26/24 14:49 01/26/24 14:50 0.9 % Sodium Chloride 50 Ml Vial IV 01/26/24 14:50 50 ml ONCE ONE Administration ORDERS Category Date Time Status CT Venogram head Stat Cat Scan 01/26/24 13:[address] head/brain wo con Stat Cat Scan 01/26/24 13:51 Completed POCUS Point of Care (ER Only) Stat Exams 01/26/24 15:07 Ordered Complete Blood Count Auto Diff Stat Lab 01/26/24 14:50 Completed Comprehensive Metabolic Panel Stat Lab 01/26/24 14:50 Completed Erythrocyte Sedimentation Rate Stat Lab 01/26/24 14:50 Completed Medical Decision Narrative: In summary, this patient is a 33-year-old female presenting to the Emergency Department for evaluation of left-sided headache, left eye pressure, and left visual disturbance greater than 1 month. Differential diagnoses considered include but are not limited to migraine, occipital neuralgia, trigeminal neuralgia, cervical radiculopathy, temporal arteritis. Ruling out the most morbid conditions drove assessment. I reviewed patient's past medical records and noted previous evaluation here with noncontrasted CT scan last month as per HPI. On exam, the patient is well-appearing and is neurologically intact with the exception of mild anisocoria with left pupil smaller than right, mild left eye ptosis, but no other concerns. No tenderness to palpation of the temporal artery. She was given a bolus of IV fluids as well as IV Compazine, Benadryl, Toradol, and magnesium. Workup included CT head without contrast, CT venogram, CBC, CMP, ESR. I independently interpreted CT scan of the head without contrast prior to the radiologist read and noted no obvious acute intracranial hemorrhage or space-occupying lesion. Please see their read for final interpretation. Labs were obtained that demonstrated very mildly elevated ESR but otherwise no acutely concerning abnormalities. Ocular pressure in the left eye is normal, and ocular ultrasound was also normal. Visual acuity is 20/30 L eye 20/15 R eye 20/20 both. On reassessment, patient had no improvement after administration of event as above. Given this, she was given IV dexamethasone to complete migraine cocktail.. Ultimately, I called and had an interactive discussion with Dr. Jeter with [facility] ophthalmology given the patient's pain and visual disturbance of the left eye. They advised they feel that she likely has acute pathology such as giant cell arteritis or optic neuritis based on workup that has been reassuring here. They advise she can follow-up outpatient, and they will arrange that appointment. They are to call her with an appointment over the next week. CT scan reads were pending at time of handoff to Dr. Tovar. <YISEL Denton - Last Filed: 01/26/24 17:37> Vital Signs: 01/26/24 13:37 01/26/24 14:30 01/26/24 15:32 Temperature 98.0 F Temperature Source Oral Pulse Rate 70 73 Pulse Rate [Right Radial] 101 H Respiratory Rate 20 Blood Pressure 100/62 L 110/57 L Blood Pressure [Right Arm] 105/77 L Blood Pressure Mean [Right Arm] 86 02 Sat by Pulse Oximetry 98 97 100 Oxygen Delivery Method Room Air Room Air Lab Data Lab Results 01/26/24 14:50: WBC 7.8, RBC 4.24, Hgb 13.4, Hct 40.8, MCV 96.2, MCH 31.6 H, MCHC 32.9, RDW 12.9, Plt Count 240, MPV 8.5, Neut % (Auto) 76.7, Lymph % (Auto) 12.9, [place] % (Auto) 4.3, Eos % (Auto) 5.4, Baso % (Auto) 0.7, Neut # (Auto) 6.0, Lymph # (Auto) 1.0, [place] # (Auto) 0.3, Eos # (Auto) 0.4, Baso # (Auto) 0.1, ESR 23 H, Sodium 133 L, Potassium 3.9, Chloride 101, Carbon Dioxide 28, Anion Gap 7.9, BUN 5 L, Creatinine 0.70, Estimated Creat Clear 149, Estimated GFR 97, Est GFR ( Amer) 117, Glucose 100, Calcium 8.9, Total Bilirubin 0.6, AST 32, ALT 26, Alkaline Phosphatase 150 H, Total Protein 6.7, Albumin 4.0, Globulin 2.7, Albumin/Globulin Ratio 1.5 Orders (Tests/Meds): ED MEDICATIONS Discontinued Medications Generic Name Dose Route Start Last Admin Trade Name Micheleq PRN Reason Stop Dose Admin Acetaminophen 1,000 mg 01/26/24 13:51 01/26/24 14:11 Acetaminophen 1,000mg/100ml Vial IV 01/26/24 13:52 1,000 mg ONCE ONE Administration Dexamethasone Sodium Phosphate 10 mg 01/26/24 15:35 01/26/24 15:42 Dexamethasone 4mg/Ml 1ml Vial IV 01/26/24 15:36 10 mg ONCE ONE Administration Diphenhydramine HCl 25 mg 01/26/24 13:51 01/26/24 14:10 Diphenhydramine 50mg/Ml Vial IV 01/26/24 13:52 25 mg ONCE ONE Administration Lactated Ringer's 1,000 mls @ 999 mls/hr 01/26/24 13:51 01/26/24 14:11 Lactated Ringer's 1000 Ml Bag IV 01/26/24 14:51 999 mls/hr .Q1H1M ONE Administration Magnesium Sulfate 2 gm in 50 mls @ 50 mls/hr 01/26/24 13:51 01/26/24 14:11 Magnesium Sulfate 2gm/50ml Premix IV 01/26/24 14:50 50 mls/hr ONCE ONE Administration Iopamidol 100 ml 01/26/24 14:49 01/26/24 14:50 Iopamidol-370 (76%);100ml Bottle IV 01/26/24 14:50 100 ml ONCE ONE Administration Ketorolac Tromethamine 15 mg 01/26/24 13:51 01/26/24 14:10 Ketorolac 30mg/Ml Vial IV 01/26/24 13:52 15 mg ONCE ONE Administration Prochlorperazine Edisylate 5 mg 01/26/24 13:51 01/26/24 14:11 Prochlorperazine 10mg/2ml Vial IV 01/26/24 13:52 5 mg ONCE ONE Administration Sodium Chloride 10 ml 01/26/24 14:49 01/26/24 14:50 Sodium Chloride 0.9% 10ml Syr (Rad Only) IV 01/26/24 14:50 10 ml ONCE ONE Administration Sodium Chloride 50 ml 01/26/24 14:49 01/26/24 14:50 0.9 % Sodium Chloride 50 Ml Vial IV 01/26/24 14:50 50 ml ONCE ONE Administration ORDERS Category Date Time Status CT Venogram head Stat Cat Scan 01/26/24 13:[address] head/brain wo con Stat Cat Scan 01/26/24 13:51 Completed POCUS Point of Care (ER Only) Stat Exams 01/26/24 15:07 Ordered Complete Blood Count Auto Diff Stat Lab 01/26/24 14:50 Completed Comprehensive Metabolic Panel Stat Lab 01/26/24 14:50 Completed Erythrocyte Sedimentation Rate Stat Lab 01/26/24 14:50 Completed <Pradeep Tovar MD - Last Filed: 01/26/24 17:52> Vital Signs: 01/26/24 13:37 01/26/24 14:30 01/26/24 15:32 Temperature 98.0 F Temperature Source Oral Pulse Rate 70 73 Pulse Rate [Right Radial] 101 H Respiratory Rate 20 Blood Pressure 100/62 L 110/57 L Blood Pressure [Right Arm] 105/77 L Blood Pressure Mean [Right Arm] 86 02 Sat by Pulse Oximetry 98 97 100 Oxygen Delivery Method Room Air Room Air Lab Data Lab Results 01/26/24 14:50: WBC 7.8, RBC 4.24, Hgb 13.4, Hct 40.8, MCV 96.2, MCH 31.6 H, MCHC 32.9, RDW 12.9, Plt Count 240, MPV 8.5, Neut % (Auto) 76.7, Lymph % (Auto) 12.9, [place] % (Auto) 4.3, Eos % (Auto) 5.4, Baso % (Auto) 0.7, Neut # (Auto) 6.0, Lymph # (Auto) 1.0, [place] # (Auto) 0.3, Eos # (Auto) 0.4, Baso # (Auto) 0.1, ESR 23 H, Sodium 133 L, Potassium 3.9, Chloride 101, Carbon Dioxide 28, Anion Gap 7.9, BUN 5 L, Creatinine 0.70, Estimated Creat Clear 149, Estimated GFR 97, Est GFR ( Amer) 117, Glucose 100, Calcium 8.9, Total Bilirubin 0.6, AST 32, ALT 26, Alkaline Phosphatase 150 H, Total Protein 6.7, Albumin 4.0, Globulin 2.7, Albumin/Globulin Ratio 1.5 Orders (Tests/Meds): ED MEDICATIONS Discontinued Medications Generic Name Dose Route Start Last Admin Trade Name Micheleq PRN Reason Stop Dose Admin Acetaminophen 1,000 mg 01/26/24 13:51 01/26/24 14:11 Acetaminophen 1,000mg/100ml Vial IV 01/26/24 13:52 1,000 mg ONCE ONE Administration Dexamethasone Sodium Phosphate 10 mg 01/26/24 15:35 01/26/24 15:42 Dexamethasone 4mg/Ml 1ml Vial IV 01/26/24 15:36 10 mg ONCE ONE Administration Diphenhydramine HCl 25 mg 01/26/24 13:51 01/26/24 14:10 Diphenhydramine 50mg/Ml Vial IV 01/26/24 13:52 25 mg ONCE ONE Administration Lactated Ringer's 1,000 mls @ 999 mls/hr 01/26/24 13:51 01/26/24 14:11 Lactated Ringer's 1000 Ml Bag IV 01/26/24 14:51 999 mls/hr .Q1H1M ONE Administration Magnesium Sulfate 2 gm in 50 mls @ 50 mls/hr 01/26/24 13:51 01/26/24 14:11 Magnesium Sulfate 2gm/50ml Premix IV 01/26/24 14:50 50 mls/hr ONCE ONE Administration Iopamidol 100 ml 01/26/24 14:49 01/26/24 14:50 Iopamidol-370 (76%);100ml Bottle IV 01/26/24 14:50 100 ml ONCE ONE Administration Ketorolac Tromethamine 15 mg 01/26/24 13:51 01/26/24 14:10 Ketorolac 30mg/Ml Vial IV 01/26/24 13:52 15 mg ONCE ONE Administration Prochlorperazine Edisylate 5 mg 01/26/24 13:51 01/26/24 14:11 Prochlorperazine 10mg/2ml Vial IV 01/26/24 13:52 5 mg ONCE ONE Administration Sodium Chloride 10 ml 01/26/24 14:49 01/26/24 14:50 Sodium Chloride 0.9% 10ml Syr (Rad Only) IV 01/26/24 14:50 10 ml ONCE ONE Administration Sodium Chloride 50 ml 01/26/24 14:49 01/26/24 14:50 0.9 % Sodium Chloride 50 Ml Vial IV 01/26/24 14:50 50 ml ONCE ONE Administration ORDERS Category Date Time Status CT Venogram head Stat Cat Scan 01/26/24 13:[address] head/brain wo con Stat Cat Scan 01/26/24 13:51 Completed POCUS Point of Care (ER Only) Stat Exams 01/26/24 15:07 Ordered Complete Blood Count Auto Diff Stat Lab 01/26/24 14:50 Completed Comprehensive Metabolic Panel Stat Lab 01/26/24 14:50 Completed Erythrocyte Sedimentation Rate Stat Lab 01/26/24 14:50 Completed Medical Decision Narrative: In summary, this patient is a 33-year-old female presenting to the Emergency Department for evaluation of left-sided headache, left eye pressure, and left visual disturbance greater than 1 month. Differential diagnoses considered include but are not limited to migraine, occipital neuralgia, trigeminal neuralgia, cervical radiculopathy, temporal arteritis. Ruling out the most morbid conditions drove assessment. I reviewed patient's past medical records and noted previous evaluation here with noncontrasted CT scan last month as per HPI. On exam, the patient is well-appearing and is neurologically intact with the exception of mild anisocoria with left pupil smaller than right, mild left eye ptosis, but no other concerns. No tenderness to palpation of the temporal artery. She was given a bolus of IV fluids as well as IV Compazine, Benadryl, Toradol, and magnesium. Workup included CT head without contrast, CT venogram, CBC, CMP, ESR. I independently interpreted CT scan of the head without contrast prior to the radiologist read and noted no obvious acute intracranial hemorrhage or space-occupying lesion. Please see their read for final interpretation. Labs were obtained that demonstrated very mildly elevated ESR but otherwise no acutely concerning abnormalities. Ocular pressure in the left eye is normal, and ocular ultrasound was also normal. Visual acuity is 20/30 L eye 20/15 R eye 20/20 both. On reassessment, patient had no improvement after administration of event as above. Given this, she was given IV dexamethasone to complete migraine cocktail.. Ultimately, I called and had an interactive discussion with Dr. Jeter with [facility] ophthalmology given the patient's pain and visual disturbance of the left eye. They advised they feel that she likely has acute pathology such as giant cell arteritis or optic neuritis based on workup that has been reassuring here. They advise she can follow-up outpatient, and they will arrange that appointment. They are to call her with an appointment over the next week. CT scan reads were pending at time of handoff to Dr. Tovar. La: I assumed primary responsibility for this patient after signout from previous physician. On my evaluation, patient still symptomatic, independent rotation of workup largely unremarkable. CTV and CT head without contrast without acute findings. Because patient at baseline without signs or symptoms of clinical decompensation, deemed appropriate for discharge. Results were relayed to patient who voiced understanding and were agreeable to outpatient management and follow up. I discussed my clinical impression with patient and answered all questions. At this time, the evidence for any other entities in the differential is insufficient to warrant any further testing or ED observation. This was explained as well. Advisory was given that persistent or worsening symptoms require further evaluation. I confirmed the understanding of this discussion. Procedures <Maricarmen Potter, - Last Filed: 01/26/24 16:21> Limited Ultrasound Interpretation:: Limited ocular ultrasound Indication: Eye pain with visual changes Identified structures: -Left eye Findings: Left eye: Retina: Normal Lens: Normal Vitreous body: Anechoic Optic nerve sheath diameter (mm): Normal at 3 mm Foreign body: Absent Impression: Left eye: Normal ocular ultrasound Images were saved to permanent archive The study was technically adequate CPT 37566-50 This study was performed by me, and I personally interpreted all images/videos. Based on my clinical judgement, these images were adequate and did not necessitate further imaging. Critical Care <Maricarmen Potter DO - Last Filed: 01/26/24 16:21> Critical Care Time Critical Care Time: No
[2024-01-26 14:30] VITALS: BP 100/62; PULSE 70; O2SAT 97
[2024-01-26] MEDS: SODIUM CHLORIDE 0.9% 10ML SYR (RAD ONLY) 10 ML IV (14:50)
[2024-01-26] MEDS: IOPAMIDOL-370 (76%);100ML BOTTLE 100 ML IV (14:50)
[2024-01-26] MEDS: 0.9 % SODIUM CHLORIDE 50 ML VIAL IV (14:50)
[2024-01-26 15:03] LABS: Basophils # 0.1 K/mm3 (0-0.2); Basophils % 0.7 % (0.1-2.0); Eosinophils # 0.4 K/mm3 (0.0-0.4); Eosinophils % 5.4 % (0.1-12.0); Hematocrit 40.8 % (37.0-47.0); Hemoglobin 13.4 g/dL (12.2-16.2); Lymphocytes % 12.9 % (10-50); Mean Corpuscular HGB Conc 32.9 g/dL (31.8-35.4); Mean Corpuscular Hemoglobin 31.6 pg (27.0-31.2); Mean Corpuscular Volume 96.2 fl (81-99); Mean Platelet Volume 8.5 fl (7.4-10.4); Monocytes # 0.3 K/mm3 (0.1-1.0); Monocytes % 4.3 % (1.7-9.3); Neutrophils % 76.7 % (37.0-80.0); Platelet Count 240 K/mm3 (142-424); Red Blood Count 4.24 M/mm3 (4.20-5.40); Red Cell Distribution Width 12.9 % (11.5-17.5); White Blood Count 7.8 K/mm3 (4.8-10.8)
--- NOTE | 2024-01-26 15:07 | PC.NURSE ---
visual acuity screening was both eyes - 20/15 right eye - 20/20 left eye - 20/30
[2024-01-26 15:10] LABS: Chloride 101 mmol/L (98-107); Sodium 133 mmol/L (136-145)
[2024-01-26 15:11] LABS: Potassium 3.9 mmoL/L (3.5-5.1)
[2024-01-26 15:13] LABS: Alanine Aminotransferase 26 U/L (12-78); Alkaline Phosphatase 150 U/L (38-126); Anion Gap 7.9 mEq/L (5-15); Aspartate Amino Transferase 32 U/L (14-36); Bilirubin,Total 0.6 mg/dl (0.2-1.3); Blood Urea Nitrogen 5 mg/dl (7-17); Carbon Dioxide 28 mmol/L (22.0-30.0); Creatinine Clearance Estimated 149 mL/min (50-200); Estimated Glomerular Filt Rate 97 ml/min (>60); GFR (African American) 117 ML/MIN (>60)
[2024-01-26 15:14] LABS: Albumin/Globulin Ratio 1.5 (1.1-1.8); Calcium 8.9 mg/dl (8.4-10.2); Globulin 2.7 g/dL (1.3-3.2); Glucose 100 mg/dl (74-100); Total Protein,Serum 6.7 g/dl (6.3-8.2)
[2024-01-26 15:29] LABS: Erythrocyte Sedimentation Rate 23 mm/hr (0-20)
[2024-01-26 15:32] VITALS: BP 110/57; PULSE 73; O2SAT 100
--- NOTE | 2024-01-26 15:38 | PC.NURSE ---
calling [facility] at this time.
[2024-01-26] MEDS: DEXAMETHASONE 4MG/ML 1ML VIAL 10 MG IV (15:42)
--- NOTE | 2024-01-26 15:42 | PC.NURSE ---
[facility] will call back
--- NOTE | 2024-01-26 15:45 | PC.NURSE ---
Dr. [id number] speaking with [facility]plan at this time.
[2024-01-26 17:52] VITALS: BP 125/78; PULSE 70; RESP 20; TEMP 36.7; O2SAT 99
== END 2024-01-26 17:53 | disposition home or self-care (01) ==
PROVIDERS: Emergency Provider Emergency Medicine; PCP Nurse Practitioner
DX: G44.89 Other headache syndrome (principal); H57.12 Ocular pain, left eye; H53.8 Other visual disturbances; E87.1 Hypo-osmolality and hyponatremia; F17.210 Nicotine dependence, cigarettes, uncomplicated; J45.909 Unspecified asthma, uncomplicated
CPT/HCPCS: 70450; 70496; 80053; 85025; 85651; 96365; 96375; 99285; J0131; J3475; Q9967